=== PATIENT | female | born 1995 | race Caucasian/White ===

== ENCOUNTER 2017-05-20 14:51 | Emergency (ER) | payer BC ==
[~2017-05-20] VITALS: Ht 175.3 cm; Wt 115.0 kg
[2017-05-20 15:02] VITALS: BP 147/74; PULSE 68; RESP 17; TEMP 98.1; O2SAT 100
[2017-05-20 16:02] LABS: BASOPHIL # 0.1 TH/MM3 (0-0.2); BASOPHIL % 0.6 % (0.0-2.0); EOSINOPHIL # 0.1 TH/MM3 (0-0.4); EOSINOPHIL % 1.1 % (0.0-4.0); HEMATOCRIT 43.2 % (35.0-46.0); HEMOGLOBIN 14.9 GM/DL (11.6-15.3); LYMPHOCYTE # 2.5 TH/MM3 (1.0-4.8); MEAN CELL VOLUME 89.7 FL (80.0-100.0); MEAN CORPUSCULAR HGB CONC 34.5 % (32.0-36.0); MEAN PLATELET VOLUME 9.7 FL (7.0-11.0); MONO % 6.4 % (0.0-8.0); MONOCYTE # 0.7 TH/MM3 (0-0.9); NEUT % 67.9 % (16.0-70.0); PLATELET COUNT 306 TH/MM3 (150-450); RED BLOOD COUNT 4.82 MIL/MM3 (4.00-5.30); RED CELL DISTRIBUTION WIDTH 12.4 % (11.6-17.2); WHITE BLOOD COUNT 10.3 TH/MM3 (4.0-11.0)
[2017-05-20 16:18] LABS: BACTERIA, URINE FEW /hpf; BILIRUBIN, URINE NEG (NEG); BLOOD, URINE TRACE (NEG); GLUCOSE,URINE NEG (NEG); KETONE, URINE 10 mg/dL (NEG); MUCUS URINE FEW /lpf (OCC); NITRITE,URINE NEG (NEG); PH, URINE 5.5 (5.0-8.5); SQUAMOUS EPITHELIAL CELL URINE 6 /hpf (0-5); TRANSITIONAL EPI CELLS, URINE 1 /hpf; URINE COLOR YELLOW (YELLW/STRAW); URINE LEUKOCYTE ESTERASE LARGE (NEG)
[2017-05-20] MEDS ORDERED: SODIUM CHLOR 0.9% 1000 ML INJ 1,000 ML IV SCH (16:30)
[2017-05-20] MEDS ORDERED: cefTRIAXone INJ 1,000 MG in SODIUM CHLORIDE 0.9% INJ 100 ML IV ONE (16:30)
[2017-05-20] MEDS ORDERED: ONDANSETRON HCL 4 MG/2 ML VIAL IVP ONE (16:30)
--- NOTE | 2017-05-20 16:30 | PD ---
HPI Chief Complaint: GI Complaint Time Seen by Provider: 16:14 Travel History International Travel<30 days: No Contact w/Intl Traveler<30days: No Traveled to known affect area: No History of Present Illness HPI Patient comes in complaining of several days worth of nausea and vomiting, denies any abdominal pain preceding the nausea and vomiting. Patient also denies any fever, rash, headache, neck pain, visual abnormalities, lightheadedness, dizziness, chest pain, back pain, or abdominal pain. Patient went to an urgent care where she had a negative test and was given a prescription for Zofran tablets. Patient was unable to tolerate them and ended up vomiting the tablet. Patient was not given any of the oral dissolving tablets. Patient denies any hematemesis, denies any hematochezia, denies any weight loss. Denies any known drug allergies Denies any past medical history States that she has past surgical history significant for tonsillectomy only PFSH Past Medical History Medical History: Denies Significant Hx ?: Not Past Surgical History Tonsillectomy: Yes Social History Alcohol Use: No Tobacco Use: No Substance Use: Yes (marijuana) Allergies-Medications (Allergen,Severity, Reaction): Coded Allergies: No Known Allergies (Unverified , 05/20/17) Reported Meds & Prescriptions Reported Meds & Active Scripts Active Macrobid (Nitrofurantoin Monohydrate Macrocrystals) 100 Mg Capsule 100 Mg PO BID 7 Days Reglan (Metoclopramide HCl) 10 Mg Tab 10 Mg PO TIDAC Zofran Odt (Ondansetron Odt) 4 Mg Tab 4 Mg SL Q8HR PRN Review of Systems General / Constitutional: No: Fever Eyes: No: Visual changes HENT: No: Headaches Cardiovascular: No: Chest Pain or Discomfort Respiratory: No: Shortness of Breath Gastrointestinal: Positive: Nausea, Vomiting Genitourinary: No: Dysuria Musculoskeletal: No: Pain Skin: No Rash Neurologic: No: Weakness Psychiatric: No: Depression Endocrine: No: Polydipsia Hematologic/Lymphatic: No: Easy Bruising Physical Exam Narrative GENERAL: SKIN: Warm and dry. HEAD: Atraumatic. Normocephalic. EYES: Pupils equal and round. No scleral icterus. No injection or drainage. ENT: No nasal bleeding or discharge. Mucous membranes pink and moist. NECK: Trachea midline. No JVD. CARDIOVASCULAR: Regular rate and rhythm. RESPIRATORY: No accessory muscle use. Clear to auscultation. Breath sounds equal bilaterally. GASTROINTESTINAL: Abdomen soft, non-tender, nondistended. MUSCULOSKELETAL: Extremities without clubbing, cyanosis, or edema. No obvious deformities. NEUROLOGICAL: Awake and alert. No obvious cranial nerve deficits. Motor grossly within normal limits. Five out of 5 muscle strength in the arms and legs. Normal speech. PSYCHIATRIC: Appropriate mood and affect; insight and judgment normal. Data Data Last Documented VS Vital Signs Date Time Temp Pulse Resp B/P (MAP) Pulse Ox O2 Delivery O2 Flow Rate FiO2 05/20/17 15:02 98.1 68 17 147/74 (98) 100 Orders Orders Complete Blood Count With Diff (05/20/17 15:05) Comprehensive Metabolic Panel (05/20/17 15:05) Urinalysis - C+S If Indicated (05/20/17 15:05) Ed Urine Pregnancytest Poc (05/20/17 15:05) Lipase (05/20/17 15:05) Urine Culture (05/20/17 15:20) Iv Access Insert/Monitor (05/20/17 16:30) Ecg Monitoring (05/20/17 16:30) Oximetry (05/20/17 16:30) NPO (05/20/17 16:30) Ondansetron Inj (Zofran Inj) (05/20/17 16:30) Ceftriaxone Inj (Rocephin Inj) (05/20/17 16:30) Sodium Chlor 0.9% 1000 Ml Inj (Ns 1000 M (05/20/17 16:30) Labs Laboratory Tests Test 05/20/17 15:20 White Blood Count 10.3 TH/MM3 Red Blood Count 4.82 MIL/MM3 Hemoglobin 14.9 GM/DL Hematocrit 43.2 % Mean Corpuscular Volume 89.7 FL Mean Corpuscular Hemoglobin 31.0 PG Mean Corpuscular Hemoglobin Concent 34.5 % Red Cell Distribution Width 12.4 % Platelet Count 306 TH/MM3 Mean Platelet Volume 9.7 FL Neutrophils (%) (Auto) 67.9 % Lymphocytes (%) (Auto) 24.0 % Monocytes (%) (Auto) 6.4 % Eosinophils (%) (Auto) 1.1 % Basophils (%) (Auto) 0.6 % Neutrophils # (Auto) 7.0 TH/MM3 Lymphocytes # (Auto) 2.5 TH/MM3 Monocytes # (Auto) 0.7 TH/MM3 Eosinophils # (Auto) 0.1 TH/MM3 Basophils # (Auto) 0.1 TH/MM3 CBC Comment DIFF FINAL Differential Comment Urine Color YELLOW Urine Turbidity CLEAR Urine pH 5.5 Urine Specific [place] 1.009 Urine Protein NEG mg/dL Urine Glucose (UA) NEG mg/dL Urine Ketones 10 mg/dL Urine Occult Blood TRACE Urine Nitrite NEG Urine Bilirubin NEG Urine Urobilinogen LESS THAN 2.0 MG/DL Urine Leukocyte Esterase LARGE Urine RBC 5 /hpf Urine WBC 66 /hpf Urine Squamous Epithelial Cells 6 /hpf Urine Transitional Epithelial Cells 1 /hpf Urine Bacteria FEW /hpf Urine Mucus FEW /lpf Microscopic Urinalysis Comment CULTURE INDICATED Blood Urea Nitrogen 8 MG/DL Creatinine 0.76 MG/DL Random Glucose 76 MG/DL Total Protein 8.0 GM/DL Albumin 4.4 GM/DL Calcium Level 9.2 MG/DL Alkaline Phosphatase 61 U/L Aspartate Amino Transf (AST/SGOT) 14 U/L Alanine Aminotransferase (ALT/SGPT) 35 U/L Total Bilirubin 0.6 MG/DL Sodium Level 142 MEQ/L Potassium Level 3.4 MEQ/L Chloride Level 109 MEQ/L Carbon Dioxide Level 25.8 MEQ/L Anion Gap 7 MEQ/L Estimat Glomerular Filtration Rate 98 ML/MIN Lipase 89 U/L [facility] Medical Decision Making Medical Screen Exam Complete: Yes Emergency Medical Condition: Yes Medical Record Reviewed: Yes Differential Diagnosis Stomach flu versus pancreatitis versus hepatitis versus electrolyte abnormalities versus related versus pyelonephritis versus aSCending cystitis Narrative Course test is negative CBC shows no leukocytosis, no anemia, normal platelet count, no left shift UA significant for UTI patient will be given Rocephin IV 1 as well as rehydrated with IV fluids 1 L normal saline 1 as well as given Zofran medication IV for nausea and vomiting CMP results: Electrodes are within normal limits, normal kidney liver and pancreatic functions. Patient was presented with the offered to have CT abdomen and pelvis performed however the patient declined and did not want to have a CAT scan performed. Patient will be signing AGAINST MEDICAL ADVICE AMA: The risks of leaving against medical advice without further evaluation treatment were discussed with the patient. These risks include cardiac dysfunction, cardiac dysrhythmia, possible heart attack, possible stroke or . The patient indicated understanding of these risks and appeared to have the capacity to make this decision. Diagnosis Primary Impression: Ascending cystitis with nausea Additional Impression: AMA Scripts Nitrofurantoin Monohydrate Macrocrystals (Macrobid) 100 Mg Capsule 100 MG PO BID for Infection for 7 Days, #14 CAP 0 Refills Prov: Kunal Farias MD 05/20/17 Metoclopramide (Reglan) 10 Mg Tab 10 MG PO TIDAC, #12 TAB 0 Refills Prov: Kunal Farias MD 05/20/17 Ondansetron Odt (Zofran Odt) 4 Mg Tab 4 MG SL Q8HR Y for Nausea/Vomiting, #20 TAB 0 Refills Prov: Kunal Farias MD 05/20/17 Disposition: 01 DISCHARGE HOME Condition: Stable Kunal Farias MD May 20, 2017 16:30
[2017-05-20] MEDS ORDERED: ZOFR4TAB3 SL (16:34)
[2017-05-20] MEDS ORDERED: REGL10TA5 PO (16:34)
[2017-05-20] MEDS ORDERED: MACR100C2 PO (16:34)
[2017-05-20 16:47] LABS: ALBUMIN 4.4 GM/DL (3.4-5.0); ALT (GPT) 35 U/L (9-42); AST (GOT) 14 U/L (16-38); BICARBONATE 25.8 MEQ/L (21.0-32.0); BLOOD UREA NITROGEN 8 MG/DL (7-18); CALCIUM 9.2 MG/DL (8.5-10.1); CHLORIDE 109 MEQ/L (98-107); CREATININE 0.76 MG/DL (0.50-1.00); GLOMERULAR FILTRATION RATE 98 ML/MIN (>89); GLUCOSE,RANDOM 76 MG/DL (74-106); SODIUM (NA) 142 MEQ/L (136-145)
[2017-05-20 16:50] LABS: ALKALINE PHOSPHATASE 61 U/L (45-117); TOTAL BILIRUBIN ADULT 0.6 MG/DL (0.2-1.0)
== END 2017-05-20 17:41 | disposition home or self-care (01) ==
LOC: NEPD 14:51
DX: N30.90 Cystitis, unspecified without hematuria (principal); R11.2 Nausea with vomiting, unspecified; F12.90 Cannabis use, unspecified, uncomplicated
CPT/HCPCS: 80053; 81001; 83690; 84703; 85025; 87086; 96374; 96375; 99284; J0696; J2405; J7030